=== PATIENT | male | born 1975 | race African-American/Black ===

== ENCOUNTER 2019-01-14 23:37 | Emergency (ER) | payer OTHER ==
[2019-01-14 23:55] VITALS: BP 108/66; PULSE 109; BMI 24.4
--- NOTE | 2019-01-15 00:17 | PDOC ---
History of Present Illness - General Chief Complaint: Cold Symptoms Stated Complaint: VIRAL SYMPTOMS Time Seen by Provider: 01/14/19 23:57 - History of Present Illness Initial Comments: This 43-year-old man with irritable bowel syndrome but no other significant past medical history presents with 2 day history of body aches, fever (MAXIMUM TEMPERATURE 102.5F orally) and nonproductive cough. Patient has been taking [id number] medications for his symptoms but tonight he feels significantly worse after he attended a libertarian. Patient has had significant close contact with family members diagnosed with influenza in the last week. Past History - Past Medical History Allergies/Adverse Reactions: Allergies Allergy/AdvReac Type Severity Reaction Status Date / Time No Known Allergies Allergy Unverified 01/14/19 23:44 Home Medications: Ambulatory Orders Dicyclomine HCl [Bentyl -] PRN 01/14/19 Metoclopramide HCl [Reglan] PRN 01/14/19 Hydrocodone Bit/Homatrop Me-Br [Hydrocodone Compound Syrup] 5 ml PO QID PRN #60 ml MDD 20 ml 01/15/19 Oseltamivir Phosphate [Tamiflu -] 75 mg PO BID #10 capsule 01/15/19 COPD: No GI Disorders: Yes (IBS) - Suicide/Smoking/Psychosocial Hx Smoking History: Never smoked Review of Systems - Review of Systems Able to Perform ROS?: Yes Comments:: 12 point review of systems is negative except for what is noted in the history of present illness *Physical Exam - Vital Signs Last Vital Signs Temp Pulse Resp BP Pulse Ox 102.8 F H 109 H 18 108/66 97 01/14/19 23:51 01/14/19 23:51 01/14/19 23:51 01/14/19 23:51 01/14/19 23:51 - Physical Exam Comments: GENERAL: Adult male, in moderate distress secondary to body aches/fever; no respiratory distress evident HEAD: Normal with no signs of trauma. EYES: PERRLA, EOMI, sclera anicteric, conjunctiva clear. ENT: Ears normal, nares patent, oropharynx clear without exudates. Dry mucous membranes. NECK: Normal range of motion, supple without lymphadenopathy, JVD, or masses. LUNGS: Breath sounds equal, clear to auscultation bilaterally. No wheezes, and no crackles. HEART:Regular rate and rhythm, normal S1 and S2 without murmur, rub or gallop. ABDOMEN:.normal bowel sounds No guarding,tenderness or rebound.No masses No distention. EXTREMITIES: Normal range of motion, no edema. No clubbing or cyanosis. No erythema, or tenderness. NEUROLOGICAL: Cranial nerves II through XII grossly intact. Normal speech. No focal neurological deficits. MUSCULOSKELETAL: Back non-tender to palpation, no CVA tenderness SKIN: Warm, Dry, normal turgor, no rashes or lesions noted. Moderate Sedation - Procedure Monitoring Vital Signs: Procedure Monitoring Vital Signs Temperature 102.8 F H 01/14/19 23:51 Pulse Rate 109 H 01/14/19 23:51 Respiratory Rate 18 01/14/19 23:51 Blood Pressure 108/66 01/14/19 23:51 O2 Sat by Pulse Oximetry (%) 97 01/14/19 23:51 Medical Decision Making - Medical Decision Making This 43-year-old man presents with 2 day history of febrile illness consistent with influenza (patient has had close family contact with patients diagnosed with influenza). Fever on presentation is 102.8F (orally). Patient given 1 g acetaminophen by mouth for fever. Since patient is within 72 hours of start of symptoms, Tamiflu 75 mg twice day for 5 days will be diagnosed. The patient also asked for "strong" cough suppressant. Small prescription for hydrocodone syrup sent to patient's pharmacy. He should not attend work until Wednesday, 01/18. He should return to the emergency room if he has persistent high fever or difficulty breathing/ wheezing *DC/Admit/Observation/Transfer Diagnosis at time of Disposition: Influenza - Discharge Dispostion Disposition: HOME Condition at time of disposition: Stable - Prescriptions Prescriptions: Hydrocodone Bit/Homatrop Me-Br [Hydrocodone Compound Syrup] 5 ml PO QID PRN #60 ml MDD 20 ml PRN Reason: Cough Oseltamivir Phosphate [Tamiflu -] 75 mg PO BID #10 capsule - Referrals - Patient Instructions Printed Discharge Instructions: Influenza Additional Instructions: Rest; drink plenty of fluids Acetaminophen/ibuprofen as needed for fever/bodyaches Tamiflu 75 mg twice a day for 5 days Hydrocodone syrup 1 teaspoon up to 4 times a day as needed for severe cough; this will make you sleepy/avoid any activity that requires careful attention while taking this No work until 01/18 Return to ER if you have severe shortness of breath/persistent high fever Follow-up with your doctor in 5-7 days - Post Discharge Activity Forms/Work/School Notes: Back to Work
[2019-01-15] MEDS ORDERED: ACETAMINOPHEN 500 MG TABLET (FP) PO ONE (00:47)
[2019-01-15] MEDS ORDERED: ACETAMINOPHEN 500 MG TABLET (FP) ONE (00:50)
[2019-01-15 01:21] VITALS: TEMP 101.1
== END 2019-01-15 01:18 | disposition home or self-care (01) ==
LOC: FER 23:37
DX: J11.1 Influenza due to unidentified influenza virus with other respiratory manifestations (principal)
CPT/HCPCS: 99282-25

== ENCOUNTER 2022-06-26 20:53 | Emergency (ER) | payer OTHER ==
[2022-06-26 21:02] VITALS: BP 122/77; PULSE 89; RESP 16; TEMP 98.7; BMI 24.4
[2022-06-26] MEDS ORDERED: BACITRACIN 15 GM TUBE TOPICAL OINTMENT TP ONE (21:06)
== END 2022-06-26 21:16 | disposition home or self-care (01) ==
LOC: FER 20:53
DX: T23.021A Burn of unspecified degree of single right finger (nail) except thumb, initial encounter (principal)
CPT/HCPCS: 99283-25

== ENCOUNTER 2024-04-10 20:33 | Emergency (ER) | payer OTHER ==
[2024-04-10 21:00] VITALS: BP 135/73; PULSE 64; RESP 16; TEMP 98.7; BMI 29.2
[2024-04-10] MEDS ORDERED: ACETAMINOPHEN INJECTION 100 ML IVPB ONE (21:10)
[2024-04-10] MEDS ORDERED: MECLIZINE HCL 25 MG TABLET (FP) ONE (21:10)
[2024-04-10] MEDS ORDERED: ONDANSETRON 4 MG/2 ML VIAL ONE (21:10)
[2024-04-10 21:16] LABS: HEMATOCRIT 41.3 % (35.4-49); HEMOGLOBIN 13.7 G/dL (11.7-16.9); MCH 29.3 pg (25.7-33.7); MCHC 33.2 g/dl (32.0-35.9); MEAN CELL VOLUME 88.2 fl (80-96); PLATELET COUNT 151.3 10^3/uL (134-434); RBC 4.68 10^6/uL (4.00-5.60); WHITE BLOOD COUNT 5.9 10^3/uL (4.0-10.8)
[2024-04-10] MEDS: SODIUM CHLORIDE 1,000 ML IV ONE (21:19)
[2024-04-10] MEDS: ACETAMINOPHEN 1000 MG/100 ML BAG IVPB ONE (21:19)
[2024-04-10] MEDS: ONDANSETRON 4 MG/2 ML VIAL IVPUSH ONE (21:20)
[2024-04-10] MEDS: MECLIZINE HCL 25 MG TABLET (FP) PO ONE (21:20)
[2024-04-10 21:40] LABS: ALBUMIN 3.9 g/dl (3.4-5.0); BILIRUBIN,TOTAL 0.5 mg/dl (0.2-1); CALCIUM 9.1 mg/dl (8.5-10.1); CREATININE 1.4 mg/dl (0.6-1.3); POTASSIUM 3.5 mmol/L (3.5-5.1); TOT PROT 6.9 g/dl (6.4-8.2)
== END 2024-04-10 22:39 | disposition home or self-care (01) ==
LOC: FER 20:33
PROC: 3E033NZ Introduction of Analgesics, Hypnotics, Sedatives into Peripheral Vein, Percutaneous Approach (ICD-10-PCS; principal; 2024-04-10)
PROC: 3E033GC Introduction of Other Therapeutic Substance into Peripheral Vein, Percutaneous Approach (ICD-10-PCS; 2024-04-10)
PROC: 3E0337Z Introduction of Electrolytic and Water Balance Substance into Peripheral Vein, Percutaneous Approach (ICD-10-PCS; 2024-04-10)
DX: R42 Dizziness and giddiness (principal); R51.9 Headache, unspecified; K62.5 Hemorrhage of anus and rectum
CPT/HCPCS: 36415; 70450-TC; 80053; 82550; 82553; 84484; 85027; 85651; 86850; 86900; 86901; 96361; 96374; 96375; 99284-25; J0131

== ENCOUNTER 2025-05-26 22:17 | Emergency (ER) | payer OTHER ==
[2025-05-26 22:32] VITALS: BP 138/81; PULSE 86; RESP 20; TEMP 98.4; BMI 30.4
[2025-05-26] MEDS ORDERED: ACETAMINOPHEN 500 MG TABLET (FP) ONE (23:59)
[2025-05-26] MEDS ORDERED: KETOROLAC TROMETHAMINE 30 MG/1 ML VIAL ONE (23:59)
[2025-05-27] MEDS: KETOROLAC TROMETHAMINE 30 MG/1 ML VIAL IM ONE (00:07)
[2025-05-27] MEDS: ACETAMINOPHEN 500 MG TABLET (FP) PO ONE (00:07)
== END 2025-05-27 01:01 | disposition home or self-care (01) ==
LOC: JERFT 22:17
PROC: 3E0233Z Introduction of Anti-inflammatory into Muscle, Percutaneous Approach (ICD-10-PCS; principal; 2025-05-27)
DX: S83.91XA Sprain of unspecified site of right knee, initial encounter (principal); X50.1XXA Overexertion from prolonged static or awkward postures, initial encounter
CPT/HCPCS: 73564-TC-RT-FY; 99284-25

== ENCOUNTER 2025-06-19 11:02 | Emergency (ER) | payer OTHER ==
[2025-06-19] MEDS ORDERED: IBUPROFEN 600 MG TABLET (FP) PO ONE (12:10)
[2025-06-19] MEDS ORDERED: ACETAMINOPHEN 500 MG TABLET (FP) ONE (12:10)
[2025-06-19] MEDS ORDERED: ACETAMINOPHEN WITH CODEINE 300MG/30MG TABLET ONE (12:11)
[2025-06-19] MEDS: ACETAMINOPHEN WITH CODEINE 300MG/30MG TABLET PO ONE (12:13)
[2025-06-19] MEDS: IBUPROFEN 600 MG TABLET (FP) PO ONE (12:14)
[2025-06-19] MEDS: ACETAMINOPHEN 500 MG TABLET (FP) PO ONE (12:14)
[2025-06-19 13:05] VITALS: BP 110/64; PULSE 90; RESP 18; TEMP 100.2; BMI 29.5
[2025-06-19] MEDS: SODIUM CHLORIDE 1,000 ML IV STA (13:20)
== END 2025-06-19 16:14 | disposition home or self-care (01) ==
LOC: JERFT 11:02
PROC: 3E0337Z Introduction of Electrolytic and Water Balance Substance into Peripheral Vein, Percutaneous Approach (ICD-10-PCS; principal; 2025-06-19)
DX: J40 Bronchitis, not specified as acute or chronic (principal); R50.9 Fever, unspecified; R05.9 Cough, unspecified; J02.9 Acute pharyngitis, unspecified; R09.81 Nasal congestion; R51.9 Headache, unspecified; M79.10 Myalgia, unspecified site
CPT/HCPCS: 87637-QW; 96360; 99284-25